=== PATIENT | female | born 2000 | race Caucasian/White ===

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

== ENCOUNTER → 2020-03-11 10:12 | Outpatient (CLI) | payer OTHER, SELFPAY ==
[2020-03-11 10:55] LABS: Basophils # 0.1 K/mm3 (0-0.2); Basophils % 0.4 % (0.1-2.0); Eosinophils # 0.3 K/mm3 (0.0-0.4); Eosinophils % 3.2 % (0.1-12.0); Hematocrit 40.7 % (37.0-47.0); Hemoglobin 13.2 g/dL (12.2-16.2); Lymphocytes # 3.2 K/mm3 (0.7-4.5); Lymphocytes % 30.6 % (10-50); Mean Corpuscular HGB Conc 32.3 g/dL (31.8-35.4); Mean Corpuscular Hemoglobin 25.2 pg (27.0-31.2); Mean Corpuscular Volume 77.8 fl (81-99); Mean Platelet Volume 6.5 fl (7.4-10.4); Monocytes # 0.5 K/mm3 (0.1-1.0); Monocytes % 4.7 % (1.7-9.3); Neutrophils # 6.4 K/mm3 (1.8-7.8); Neutrophils % 61.2 % (37.0-80.0); Platelet Count 373 K/mm3 (142-424); Red Blood Count 5.23 M/mm3 (4.20-5.40); Red Cell Distribution Width 13.2 % (11.5-17.5); White Blood Count 10.5 K/mm3 (4.5-13.0)
[2020-03-11 11:51] LABS: Chloride 105 mmol/L (98-107); Sodium 137 mmol/L (136-145)
[2020-03-11 11:52] LABS: Potassium 4.4 mmoL/L (3.5-5.1)
[2020-03-11 11:54] LABS: Alanine Aminotransferase 41 U/L (12-78); Alkaline Phosphatase 72 U/L (38-126); Anion Gap 10.4 mEq/L (5-15); Aspartate Amino Transferase 28 U/L (14-36); Bilirubin,Total 0.5 mg/dl (0.2-1.3); Blood Urea Nitrogen 20 mg/dl (7-17); Carbon Dioxide 26 mmol/L (22.0-30.0); Estimated Glomerular Filt Rate 108 ml/min (>60); GFR (African American) 130 ML/MIN (>60)
[2020-03-11 11:55] LABS: HDL Cholesterol 48 mg/dl (40-60)
[2020-03-11 12:00] LABS: Chol/HDL Ratio 2.8 (1-3.5); Cholesterol 132 mg/dl (140-200); Triglycerides 60 mg/dl (30-150); VLDL Cholesterol 12 mg/dL (0-40)
[2020-03-11 12:05] LABS: Direct LDL Cholesterol 86.58 mg/dL (100-129)
[2020-03-11 12:17] LABS: HCG,Quantitative < 2 mIU/ml (0-5.42)
[2020-03-11 12:25] LABS: Thyroid Stimulating Hormone 0.37 uIU/mL (0.465-4.68)
[2020-03-11 12:59] LABS: Albumin Level 4.3 g/dl (3.5-5.0); Albumin/Globulin Ratio 1.5 (1.1-1.8); Calcium 9.3 mg/dl (8.4-10.2); Globulin 2.9 g/dL (1.3-3.2); Glucose 95 mg/dl (74-100); Total Protein,Serum 7.2 g/dl (6.3-8.2)
[2020-03-12 09:41] LABS: Vitamin B12 601 pg/mL (232-1245); Vitamin D 25 Hydroxy 27.4 ng/mL (30.0-100.0)
== END ==
PROVIDERS: Visit Provider Nurse Practitioner Family
DX: E04.9 Nontoxic goiter, unspecified (principal); N92.6 Irregular menstruation, unspecified; R20.2 Paresthesia of skin; E55.9 Vitamin D deficiency, unspecified
CPT/HCPCS: 36415; 80053; 80061; 82607; 82652; 84436; 84443; 84702; 85025

== ENCOUNTER → 2020-03-14 09:46 | Outpatient (CLI) | payer OTHER, SELFPAY ==
--- NOTE | 2020-03-14 09:46 | US_ITS ---
PROCEDURE: US THYROID CLINICAL INDICATION: enlarged thyr Enlarged thyroid gland, isthmus nodule COMPARISON: No exams were available for comparison FINDINGS: Right lobe: 4.1 x 1.1 x 2.3 cm. There is a 3 mm hypoechoic nodule in the upper pole. A 5 mm hypoechoic nodule is present in the upper pole medially. In the lower pole there is a 5 mm area of slight decreased echogenicity. Left lobe: 4.3 x 1.3 x 1.7 cm. 7 mm hypoechoic nodule upper pole. Margins are not well discerned. There is some central increased echogenicity. T rads level 3 mildly suspicious. Recommend six-month follow-up Isthmus: There is a 6 by 2 mm hypoechoic nodule involving the central aspect of the isthmus slightly eccentric toward the left. Additional findings: IMPRESSION: Bilateral thyroid nodules. The largest nodule is in the left lobe at 7 mm which is the T rads level 3 mildly suspicious. Less than 1.5 cm. Recommend six-month follow-up Dictated by: Bandar Capps MD 03/14/2020 15:32 Electronically signed by Bandar Capps MD in [place] 03/14/2020 15:32
== END ==
PROVIDERS: PCP Emergency Medicine; Visit Provider Nurse Practitioner Family
DX: E04.9 Nontoxic goiter, unspecified (principal)
CPT/HCPCS: 76536

== ENCOUNTER → 2020-03-22 09:09 | Outpatient (CLI) | payer OTHER, SELFPAY ==
[2020-03-22 11:05] LABS: Iron 50 ug/dL (37-170)
[2020-03-22 11:15] LABS: Total Iron Binding Capacity 356 ug/dL (265-497)
[2020-03-22 11:37] LABS: Thyroid Stimulating Hormone 0.14 uIU/mL (0.465-4.68)
[2020-03-22 11:41] LABS: Ferritin 46.1 ng/ml (6.24-137)
== END ==
PROVIDERS: Visit Provider Physician Assistant
DX: R71.8 Other abnormality of red blood cells (principal); R79.89 Other specified abnormal findings of blood chemistry
CPT/HCPCS: 36415; 82728; 83540; 83550; 84443

== ENCOUNTER → 2020-03-27 13:47 | Outpatient (CLI) | payer OTHER, SELFPAY ==
[2020-03-27 14:51] LABS: Calcium 10.1 mg/dl (8.4-10.2)
[2020-03-27 15:10] LABS: Free T4 (Free Thyroxine) 1.17 ng/dl (0.78-2.19)
[2020-03-27 15:24] LABS: Thyroid Stimulating Hormone 0.08 uIU/mL (0.465-4.68)
[2020-03-29 11:12] LABS: Triiodothyronine (T3) Free 4.3 pg/mL (2.0-4.4)
[2020-03-29 11:31] LABS: Thyroid Peroxidase Antibodies <9 IU/mL (0-34)
[2020-04-02 04:45] LABS: Calcitonin <2.0 pg/mL (0.0-5.0); Thyroid Stimulating Immunoglob <0.10 IU/L (0.00-0.55)
== END ==
PROVIDERS: Visit Provider Otolaryngology
DX: E01.0 Iodine-deficiency related diffuse (endemic) goiter (principal); E04.1 Nontoxic single thyroid nodule
CPT/HCPCS: 36415; 82308; 82310; 84439; 84443; 84445; 84481; 86376

== ENCOUNTER → 2020-04-01 08:05 | Outpatient (CLI) | payer OTHER, SELFPAY ==
--- NOTE | 2020-04-01 08:10 | XR_ITS ---
PROCEDURE: XR HAND LT MIN 3V CLINICAL INDICATION: left hand pain COMPARISON: No exams were available for comparison FINDINGS: No fracture or dislocation. No lytic or blastic change. There is normal mineralization. The joint spaces are well-preserved. No significant degenerative/arthritic changes. No erosive changes evident. Other findings:None. IMPRESSION: No acute findings. Dictated by: Bandar Capps MD 04/01/2020 16:27 Electronically signed by Bandar Capps MD in [place] 04/01/2020 16:27
--- NOTE | 2020-04-01 08:10 | XR_ITS ---
PROCEDURE: XR HAND RT MIN 3V CLINICAL INDICATION: right hand pain COMPARISON: No exams were available for comparison FINDINGS: No fracture or dislocation. No lytic or blastic change. There is normal mineralization. The joint spaces are well-preserved. No significant degenerative/arthritic changes. No erosive changes evident. Other findings:None. IMPRESSION: No acute findings. Dictated by: Bandar Capps MD 04/01/2020 09:38 Electronically signed by Bandar Capps MD in [place] 04/01/2020 09:38
== END ==
PROVIDERS: PCP Nurse Practitioner Family; Visit Provider Orthopaedic Surgery
DX: M79.642 Pain in left hand (principal); M79.641 Pain in right hand
CPT/HCPCS: 73130

== ENCOUNTER → 2020-04-02 10:06 | Outpatient (CLI) | payer OTHER, SELFPAY ==
[2020-04-02 10:23] LABS: Basophils # 0.4 K/mm3 (0-0.2); Basophils % 3.2 % (0.1-2.0); Eosinophils # 0.3 K/mm3 (0.0-0.4); Eosinophils % 2.6 % (0.1-12.0); Hematocrit 46.9 % (37.0-47.0); Hemoglobin 13.5 g/dL (12.2-16.2); Lymphocytes # 3.1 K/mm3 (0.7-4.5); Lymphocytes % 27.6 % (10-50); Mean Corpuscular HGB Conc 28.8 g/dL (31.8-35.4); Mean Corpuscular Hemoglobin 24.9 pg (27.0-31.2); Mean Corpuscular Volume 86.7 fl (81-99); Mean Platelet Volume 10.1 fl (7.4-10.4); Monocytes # 0.5 K/mm3 (0.1-1.0); Monocytes % 4.6 % (1.7-9.3); Neutrophils # 7.4 K/mm3 (1.8-7.8); Neutrophils % 65.2 % (37.0-80.0); Platelet Count 438 K/mm3 (142-424); Red Blood Count 5.41 M/mm3 (4.20-5.40); Red Cell Distribution Width 19.1 % (11.5-17.5); White Blood Count 11.3 K/mm3 (4.5-13.0)
[2020-04-02 12:14] LABS: Triiodothryronine (T3) Uptake 32 % (23.5-40.5)
[2020-04-02 12:15] LABS: T4 (Thyroxine) 9.5 ug/dl (5.53-11.0)
[2020-04-02 12:28] LABS: Thyroid Stimulating Hormone 0.17 uIU/mL (0.465-4.68)
[2020-04-03 09:57] LABS: Prolactin 9.9 ng/mL (4.8-23.3)
[2020-04-03 11:34] LABS: Estradiol 30.2 pg/mL (.); FSH 6.2 mIU/mL (.); LH 10.8 mIU/mL (.)
[2020-04-09 10:16] LABS: Neisseria gonorrhoeae, NAA Negative (Negative)
== END ==
PROVIDERS: Visit Provider Nurse Practitioner Obstetrics & Gynecology
DX: Z01.419 Encounter for gynecological examination (general) (routine) without abnormal findings (principal); N91.2 Amenorrhea, unspecified; Z72.51 High risk heterosexual behavior
CPT/HCPCS: 36415; 82670; 83001; 83002; 84146; 84436; 84443; 84479; 85025; 87491; 87591

== ENCOUNTER → 2020-04-07 11:08 | Outpatient (CLI) | payer OTHER, SELFPAY ==
--- NOTE | 2020-04-07 11:11 | US_ITS ---
PROCEDURE: US TRANSVAGINAL CLINICAL INDICATION: irregular periods/ polycystic ovarian syndrome COMPARISON: No exams were available for comparison FINDINGS: UTERUS: 7cm x 4cmx 3cm with a combined endometrial thickness of 10.3mm LEFT OVARY: [id number] with a volume of 10.5ml. RIGHT OVARY: [id number] with a volume of 13ml. There is a small amount of fluid within the endometrium measuring approximately 3 mm thickness. There is a small nodular area increased echogenicity within the endometrium measuring 2 mm and could be due to small polyp. There are multiple small follicles involving both ovaries. The largest cyst on the left is 18 mm IMPRESSION: 1. Questionable small endometrial polyp with fluid in the endometrium 2. Polycystic appearance of the ovaries Dictated by: Bandar Capps MD 04/07/2020 14:39 Electronically signed by Bandar Capps MD in [place] 04/07/2020 14:39
== END ==
PROVIDERS: PCP Nurse Practitioner Family; Visit Provider Nurse Practitioner Obstetrics & Gynecology
DX: E28.2 Polycystic ovarian syndrome (principal); N92.6 Irregular menstruation, unspecified
CPT/HCPCS: 76830

== ENCOUNTER 2020-08-12 18:19 | Emergency (ER) | payer OTHER, SELFPAY ==
[2020-08-12 18:56] VITALS: BP 136/83; PULSE 88; RESP 19; TEMP 36.9; O2SAT 100; BMI 34.9
--- NOTE | 2020-08-12 18:59 | HMH.EDUTC ---
[facility] [place] Clinical Impression: Exposure to COVID-19 virus, Encounter for laboratory testing for COVID-19 virus Disposition: Home, Self-Care Condition on Discharge: Good Instructions: Preventing the Spread of Coronavirus Discharge Instructions Additional Instructions: *Monitor Temp, Over the counter Motrin or Tylenol as directed/as needed Tylenol every 4 hours and Motrin every 6 hours (as long as your family doctor has told you that you can take it) for fever or pain. and straight to ER if unable to lower temp less than 101.0 after medication given *Warm salt water gargles may help to soothe the throat *Throat Lozenges *Warm fluids like tea with honey may help to soothe the throat *Sleep elevated *Humidifier/Vaporizer Follow up IMMEDIATELY for new or worsening symptoms or no Noticeable improvement over the next 48-72 hours. 911 for difficulty breathing or swallowing You was tested for today for COVID19 your test result should be back in the next 24-48 hours, you may call to the [facility] tomorrow to see if your test results are back and the result [phone] You was given a handout with instructions for Self Quarantine and Self isolation for while you wait on test results and what to do if they are positive If you are positive the Health Dept will be contacting you also Referrals: Yoana Bacon APRN [Primary Care Provider] - As needed Forms: Work/School Release Time of Disposition: 19:01 Medical Decision Making - Jose A Inquiry Pt receiving controlled substance: No Jose A was queried for this patient: No Vital Signs: 08/12/20 18:56 Temperature 98.4 F Temperature Source Oral Pulse Rate [Left] 88 Respiratory Rate 19 Blood Pressure [Right Arm] 136/83 Blood Pressure Mean [Right Arm] 100 Blood Pressure Source [Right Arm] Automatic Cuff Blood Pressure Position [Right Arm] Sitting 02 Sat by Pulse Oximetry 100 Oxygen Delivery Method Room Air Orders (Tests/Meds): ORDERS Category Date Time Status Covid-19 Nasal PCR Sendout [facility] 08/12/20 18:40 [place] [facility] [place] - General Stated complaint: covid exposure Time Seen by Provider: 08/12/20 18:59 Mode of Arrival: Ambulatory Source of Information: Patient Limitations: No Limitations Description of Symptoms (Recalled from Triage Doc. by RN): Covid testing exposure cough HEENT Symptoms (Recalled from RN notes): No Resp Symptoms (Recalled from RN notes): Yes Skin Symptoms (Recalled from RN notes): No MS Symptoms (Recalled from RN notes): No Functional Status (Recalled from RN notes): stable - History of Present Illness Provider Complaint: Patient state that her boyfriend tested positive for COVID earlier today States that she has been having a scratchy throat and cough States that she hasnt had a fever that she is aware of and was told that she needed to come in and get tested - Related Data Previous Rx's Medication Instructions Recorded cholecalciferol (vitamin D3) 25 1,000 unit PO DAILY #90 cap 03/13/20 mcg (1,000 unit) capsule ergocalciferol (vitamin D2) 1,250 50,000 unit PO QWEEK 90 Days #12 03/13/20 mcg (50,000 unit) capsule cap norgestimate 0.25 mg-ethinyl 1 tab PO DAILY #28 tab 04/02/20 estradiol 35 mcg tablet Allergies Allergy/AdvReac Type Severity Reaction Status Date / Time No Known Allergies Allergy Verified 04/02/20 09:57 - Worker's Comp Is this a Worker's Comp case?: No Is this an [facility] Worker's Comp?: No Is this a [place] Worker's Comp?: No H History - Hepatitis A Screen Drug use history?: No High risk sexual behaviors?: No History of sexually transmitted infection?: No Currently employed?: No Childcare worker?: No Do you have indoor plumbing?: Yes Do you have electricity?: Yes Attestation statement:: This patient has been screened for Hepatitis A risk factors. I have reviewed the patient's past medical history: Yes Medical History: Denies:: Diabetes Mellitus Type 1, Diabetes Mellitus Type
[2020-08-12 19:23] VITALS: BP 136/83; PULSE 88; RESP 19; TEMP 36.9; O2SAT 100
--- NOTE | 2020-08-14 16:10 | PC.NURSE ---
PATIENT NOTIFIED OF POSITIVE COVID RESULT AT THIS TIME
[2020-08-14 16:57] LABS: Covid-19 Nasal PCR Sendout Lex Positive
== END 2020-08-12 19:23 | disposition home or self-care (01) ==
PROVIDERS: Emergency Provider Nurse Practitioner; PCP Nurse Practitioner Family
DX: U07.1 COVID-19 (principal)
CPT/HCPCS: 99201; U0004

== ENCOUNTER 2022-08-15 18:30 | Emergency (ER) | payer OTHER, SELFPAY ==
[2022-08-15 18:40] VITALS: BP 132/89; PULSE 83; RESP 18; TEMP 36.9; O2SAT 100; BMI 37.2
[2022-08-15 19:03] LABS: UTC Strep Screen (Rapid) Negative (Negative)
--- NOTE | 2022-08-15 19:04 | EXP.UTC ---
Discharge Plan Disposition Patient Disposition: Home, Self-Care Condition: Good Prescriptions Prescriptions: New prednisone [prednisone] 20 mg tablet 20 mg PO BID Qty: 10 0RF No Action norgestimate-ethinyl estradiol 1 EACH tablet 1 tab PO DAILY ergocalciferol (vitamin D2) 1,250 MCG capsule 50,000 unit PO QWEEK cholecalciferol (vitamin D3) 1,000 UNIT capsule 1,000 unit PO DAILY Referrals Follow up/Referrals: Yoana Bacon APRN [Primary Care Provider] - See instructions Activity Restrictions/Add. Instructions Additional Instructions/Restrictions: No sign of a bacterial infection. Likely viral. Viruses can take 7-14 days to run their course. Nasal saline and bulb syringe or nose Malaika to remove nasal drainage to help with nasal congestion. Hard to eat, drink, sleep with nasal congestion so important to keep this cleaned out. Monitor temp. Tylenol or Motrin as needed for pain or fever Encourage fluids, water, Gatorade, Powerade, Pedialyte if /toddler/child Warm salt water gargles Warm fluids Sore throat lozenges Sleep elevated Humidifier/vaporizer Follow-up immediately for new or worsening symptoms or no noticeable improvement over the next 48-72 hours. Clinical Impressions Clinical Impression: Upper respiratory infection Instructions Patient Instructions: DI for Viral Upper Respiratory Infection -- Adult Discharge ED Provider: Jordi ([facility])Yoana [facility] [place] HPI General Stated complaint: anshul,MARTINEZ,sore throat Mode of Arrival: Ambulatory Source of Information: Patient Limitations: No Limitations Time Seen by Provider: 08/15/22 19:04 Description of Symptoms (Recalled from Triage Doc. by RN): PATIENT C/O CONGESTION, SORE THROAT AND HEADACHE HEENT Symptoms (Recalled from RN notes): Yes Resp Symptoms (Recalled from RN notes): No Skin Symptoms (Recalled from RN notes): No MS Symptoms (Recalled from RN notes): No Functional Status (Recalled from RN notes): WNL History of Present Illness Provider Complaint: 22 yr old female presents for sore throat, congestion, martinez and cough for 2 days Related Data Home Medications Medication Instructions Recorded Confirmed cholecalciferol (vitamin D3) 25 1,000 unit PO DAILY Supplement 08/12/20 08/12/20 mcg (1,000 unit) capsule ergocalciferol (vitamin D2) 1,250 50,000 unit PO QWEEK Supplement 08/12/20 08/12/20 mcg (50,000 unit) capsule norgestimate 0.25 mg-ethinyl 1 tab PO DAILY control 08/12/20 08/12/20 estradiol 35 mcg tablet Previous Rx's Medication Instructions Recorded prednisone 20 mg tablet 20 mg PO BID #10 tabs 08/15/22 Allergies Allergy/AdvReac Type Severity Reaction Status Date / Time No Known Allergies Allergy Verified 08/12/20 20:36 Worker's Comp Is this a Worker's Comp case?: No PFSH PFSH Medical History , 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) Otitis media Postnasal drip Social History , 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) Smoking Status: Never smoker second hand exposure: No alcohol intake: never substance use type: denies use current occupational status: employed Travel in the last 8 weeks: None household members: family housing: house current occupation: [employer] current occupational exposures/hazards: No caffeine: Yes ROS Obtained: Yes All systems reviewed & no additional complaints except as documented Constitutional Constitutional: Reports system reviewed and no additional complaints, except as documented, Reports as per HPI, Reports body ache and Reports fever(s) Eyes Eyes: Reports system reviewed and no additional complaints, except as documented ENT Ears, Nose, Mouth, and Throat: Reports system reviewed and no additional complaints, except as documented, Reports nasal congestion, Reports post nasal drip and Reports sore throat Cardiovascular Cardiovascular: Reports system reviewed and no additional complaints, except as
[2022-08-15 19:20] LABS: UTC Influenza A Antigen Negative (Negative); UTC Influenza B Antigen Negative (Negative)
[2022-08-15 19:27] VITALS: BP 132/89; PULSE 83; RESP 18; TEMP 36.9; O2SAT 100
== END 2022-08-15 19:40 | disposition home or self-care (01) ==
PROVIDERS: Emergency Provider Nurse Practitioner Family; PCP Nurse Practitioner Family
DX: J06.9 Acute upper respiratory infection, unspecified (principal)
CPT/HCPCS: 87804; 87880; 99212; G0463